=== PATIENT | male | born 1950 | race Two or more races ===

== ENCOUNTER 2025-01-04 07:03 | Day surgery (SDC) | payer OTHER ==
[~2025-01-04] VITALS: Ht 188 cm; Wt 104.3 kg
[~2025-01-04 07:03] MED LIST: DOCU-111 PO; PRIM125T PO
[2025-01-04] MEDS ORDERED: IODIXANOL 320MG/ML 100ML BTL IV ONE (07:48)
[2025-01-04] MEDS ORDERED: HEPARIN IN NS 1000Units/500mL 1,500 ML ONE (07:48)
[2025-01-04] MEDS ORDERED: VERAPAMIL 2.5MG/ML INJ 2ML VIAL IV ONE (08:25)
[2025-01-04] MEDS ORDERED: ANGIOMAX 250 MG VIAL IV ONE (08:25)
[2025-01-04] MEDS ORDERED: MIDAZOLAM HCL 2MG/2ML 2ml VIAL (1mg/ml) ONE (08:25)
[2025-01-04] MEDS ORDERED: fentaNYL CITRATE 100 MCG/2 ML VL ONE (08:25)
[2025-01-04] MEDS ORDERED: LIDOCAINE 2%HCL (LOCAL ANESTH.) INJ 20ML MDV ONE (08:26)
[2025-01-04] MEDS ORDERED: SODIUM CHL 0.9% 0 ML ONE (08:26)
--- NOTE | 2025-01-04 09:36 | DVHOP2 ---
Operative Report Operative Report CARDIAC PRODUCTION STAFF WORKER PROCEDURE REPORT [place], [place] Date of Service: 01/04/25 Detective Precinct: Adarsh Barber MD PROCEDURES PERFORMED: Coronary angiogram, left heart catheterization, conscious sedation administration and supervision, less than 15 minutes; fluoroscopy use and interpretation. PREOPERATIVE DIAGNOSES: Abnormal stress test with CCS class 3 angina, POSTOP DIAGNOSIS: CAD 1v DESCRIPTION OF PROCEDURE: The patient or appropriate family signed informed consent understanding the risks, benefits and alternatives of the procedure, they wished to proceed. The patient was brought to the cardiac slab grinder in n.p.o. state. The patient was prepped in a sterile fashion. Sedation was used per cardiac cath protocol. I administered 2 mL of 2% lidocaine to the right wrist. With an antegrade front wall puncture. I cannulated the right radial artery and placed a 6-Ivorian Glidesheath slender. Next, an intra-arterial spasmolytic was administered. Next, a - 5 [place] catheter and were used for coronary angiogram and LVEDP measurement and pressure pullback. At the completion of procedure, all guides and wires were removed, and there were no immediate complications. FINDINGS: RCA: small non dominant vessel off the right sinus of Valsalva, there is no severe flow limiting stenosis. mild diffuse plaque LEFT MAIN: Moderate size left main, it bifurcates into LAD and circumflex. no severe stenosis. CIRCUMFLEX: Moderate caliber vessel coming off the left main .mid CX after OM1 has a discrete 70% stenosis. it is dominant vessel LAD: LAD is a moderate caliber vessel coming of the left main. it has mild diffuse plaquing. 30% mid LAD stenosis CONCLUSIONS: 1. 1v cad PLAN ok to proceed to LESI, epidural recommend lesi consider PCI to dominant CX in 3-6 months , doing now will delay LESI for up to 1 year as he will need dapt d/w pt ADARSH BARBER MD January 04, 2025 09:36
[2025-01-04] MEDS ORDERED: HEPARIN SODIUM (PORCINE) 5000 UNITS/ML 1ML VIAL ONE (10:55)
[2025-01-04] MEDS ORDERED: HEPARIN 1,000 UNITS/ml 1ML VIAL ONE (10:57)
[2025-01-04] MEDS: HEPARIN 1,000 UNITS/ml 1ML VIAL IV ONE (11:04)
--- NOTE | 2025-01-05 09:48 | ECG ---
[facility] Test Date: 2025-01-04 Test Time: 07:51:09 Pat Name: RUFUS LALA Department: Room: Gender: M Head Of History: : 1950 Requested By: ADARSH BARBER Order Number: [id number] Reading MD: Roque Stephens Measurements Intervals [place] Rate: 46 P: 0 MA: 0 QRS: 33 QRSD: 96 T: 22 QT: 454 QTc: 397 Interpretive Statements Normal sinus rhythm Possible Lateral infarct , age undetermined Electronically Signed On 01-06-2025 11:58:23 PDT by Roque Stephens Please click the below link to view image of tracing.
== END 2025-01-04 11:45 | disposition home or self-care (01) ==
LOC: CATH 07:03
PROVIDERS: ATTEND Internal Medicine
DX: I25.119 Atherosclerotic heart disease of native coronary artery with unspecified angina pectoris (principal); R00.1 Bradycardia, unspecified
CPT/HCPCS: 93005; 93458; C1894; J1644; J2250; J3010; Q9967; 99152

== ENCOUNTER 2025-05-03 06:57 | Day surgery (SDC) | payer OTHER ==
[2025-05-03] VITALS (12 sets, daily range): BP systolic 125–158; BP diastolic 60–73; PULSE 45–61; RESP 12–16; TEMP 97.6; O2SAT 92–97
[~2025-05-03] VITALS: Ht 188 cm; Wt 104.3 kg
[~2025-05-03 06:57] MED LIST changes: +CHOL500021 OR; +MAGN400T40 PO
[2025-05-03] MEDS: IODIXANOL 320MG/ML 100ML BTL IV ONE (07:31)
[2025-05-03] MEDS: VERAPAMIL 2.5MG/ML INJ 2ML VIAL IV ONE (07:50)
[2025-05-03] MEDS: ANGIOMAX 250 MG VIAL IV ONE (07:50)
[2025-05-03] MEDS: fentaNYL CITRATE 100 MCG/2 ML VL ONE (07:51)
[2025-05-03] MEDS: MIDAZOLAM HCL 2MG/2ML 2ml VIAL (1mg/ml) ONE (07:51)
[2025-05-03] MEDS: SODIUM CHL 0.9% 50 ML ONE (07:51)
[2025-05-03] MEDS: LIDOCAINE 2%HCL (LOCAL ANESTH.) INJ 20ML MDV ONE (07:51)
--- NOTE | 2025-05-03 08:15 | ECG ---
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
--- NOTE | 2025-05-03 08:55 | DVHOP2 ---
Operative Report Operative Report CARDIAC CORPORATION SECRETARY PROCEDURE REPORT [place], [place] Date of Service: 04/02/25 Die Attaching Machine Tender: Adarsh Barber MD PROCEDURES PERFORMED: Coronary angiogram, left heart catheterization, conscious sedation administration and supervision, less than 15 minutes; fluoroscopy use and interpretation. PREOPERATIVE DIAGNOSES: Abnormal intermediate to high risk stress test with CCS class 3 angina, knonw CAD stenosis not rvascularized, preop eval POSTOP DIAGNOSIS: 1v severe cad DESCRIPTION OF PROCEDURE: The patient or appropriate family signed informed con sent understanding the risks, benefits and alternatives of the procedure, they wished to proceed. The patient was brought to the cardiac blood bank laboratory technologist in n.p.o. state. The patient was prepped in a sterile fashion. Sedation was used per cardiac cath protocol. I administered 2 mL of 2% lidocaine to the right wrist. With an antegrade front wall puncture. I cannulated the right radial artery and placed a 6-[place] Glidesheath slender. Next, an intra-arterial spasmolytic was administered. Next, a - 6[place] catheter and XB 3.5 guide and were used for coronary angiogram and LVEDP measurement and pressure pullback. At the completion of procedure, all guides and wires were removed, and there were no immediate complications. FINDINGS: RCA: small non dominant vessel off the right sinus of Valsalva, there is no severe flow limiting stenosis. 40% mid vessel stenosis LEFT MAIN: Moderate size left main, it bifurcates into LAD and circumflex. patent CIRCUMFLEX: large dominant caliber vessel coming off the left main with. prox CX is patent. it gives off OM1 that has 40% stenosis. mid CX after OM has 80% stenosis. distal CX in av groove has moderate plaque. LPL comes off distally .s. LAD: LAD is a moderate caliber vessel coming of the left main. moderate 40-50% stenosis in mid vessel INTERVENTION: We decided to proceed with coronary intervention. I started with a 6F _XB 3.5 ___ Guide to intubate the _LM _. Angiomax bolus and gtt was started. Following this, I decided to wire using an .014 BMW across the culprit lesion with ease. At this time, we performed balloon angioplasty with a _3.0 x 12 mm balloon 12__ ATMS over __15__ seconds with 2 _ number of inflations. Following this, I decided to place a stent using a 3.5 x 15 mm onyx____ stent inflated up to __186__ ATMS over 15 seconds with two separate inflations. Following this, the stent balloon removed and angio performed showing 0% residual stenosis. JESE pre/post: 3./3 CONCLUSIONS: 1. sp pci to 80% mid CX stenosis PLAN: Aggressive risk factor modification and medical management for the patient. DAPT x 1 year uninterrupted ADARSH BARBER MD May 03, 2025 08:55
[2025-05-03] MEDS: ATROPINE SULF 1 MG/10ml SYR ONE (09:02)
[2025-05-03] MEDS: TICAGRELOR 90 MG TAB ONE (09:02)
[2025-05-03] MEDS: CLOPIDOGREL BISULFATE 75 MG TAB PO ONE (14:32)
== END 2025-05-03 15:20 | disposition home or self-care (01) ==
LOC: CATH 06:57
PROVIDERS: ATTEND Internal Medicine
DX: R00.1 Bradycardia, unspecified (principal); I25.10 Atherosclerotic heart disease of native coronary artery without angina pectoris
CPT/HCPCS: 93005; 93458; C1725; C1769; C1874; C1887; C1894; C9600; J0583; J1644; J2250; J3010; Q9967; 99152